=== PATIENT | female | born 1980 | race Asian ===

== ENCOUNTER 2017-05-13 15:29 | Emergency (ER) | payer OTHER ==
[~2017-05-13] VITALS: Ht 165.1 cm; Wt 65.0 kg
[~2017-05-13 15:29] MED LIST: IBUP-1222 PO; OXYC-302 PO
[2017-05-13 16:02] LABS: BLOOD UREA NITROGEN 14 mg/dL (7-18)
[2017-05-13 16:07] LABS: IS PT STATUS REG ER OR PRE ER? YES
== END 2017-05-13 16:57 | disposition home or self-care (01) ==
LOC: ED 16:00
DX: R00.2 Palpitations (principal); F41.1 Generalized anxiety disorder; R06.4 Hyperventilation; R55 Syncope and collapse
CPT/HCPCS: 36415; 71010; 80048; 82040; 83880; 84484; 85025; 93005; 99285

== ENCOUNTER 2018-03-19 13:50 | Emergency (ER) | payer OTHER ==
[~2018-03-19] VITALS: Ht 162.6 cm; Wt 62.0 kg
[2018-03-19] MEDS ORDERED: SODIUM CHLORIDE FLUSH 10ML SYR IVF ONE (14:00)
[2018-03-19] MEDS ORDERED: PLEASE ENTER HEIGHT AND WEIGHT MC SCH (14:00)
[2018-03-19 14:20] LABS: BASOPHILS # (AUTO) 0.02 x10^3/uL (0-0.1); BASOPHILS % (AUTO) 0 % (0-1); EOSINOPHILS # (AUTO) 0.15 x10^3/uL (0-0.4); EOSINOPHILS % (AUTO) 2 % (1-7); LYMPHOCYTES # (AUTO) 1.93 x10^3/uL (1-3.4); LYMPHOCYTES % (AUTO) 27 % (22-44); MD NO; MEAN CORPUSCULAR HEMOGLOBIN 29.7 pg (27.0-34.8); MEAN CORPUSCULAR HGB CONC 33.6 g/dL (32.4-35.8); MEAN CORPUSCULAR VOLUME 88.3 fL (80-100); MEAN PLATELET VOLUME 7.7 fL (7.4-10.4); MONOCYTES # (AUTO) 0.31 x10^3/uL (0.2-0.8); MONOCYTES % (AUTO) 4 % (2-9); NEUTROPHILS # (AUTO) 4.86 x10^3/uL (1.8-6.8); NEUTROPHILS % (AUTO) 67 % (42-75); PLATELET COUNT 259 x10^3/uL (130-400); RED BLOOD COUNT 4.91 x10^6/uL (3.82-5.3); RED CELL DISTRIBUTION WIDTH 13.7 % (9.6-15.2)
[2018-03-19 14:32] LABS: ALANINE AMINOTRANSFERASE 20 U/L (12-78); ALBUMIN 3.5 g/dL (3.4-5.0); ANION GAP 5 mmol/L (5-15); CALCIUM 8.6 mg/dL (8.5-10.1); CHLORIDE 107 mmol/L (98-107); CREATININE 0.91 mg/dL (0.55-1.02)
[2018-03-19 14:37] LABS: ALKALINE PHOSPHATASE 65 U/L (45-117); BILIRUBIN,TOTAL 0.2 mg/dL (0.2-1.0); TOTAL PROTEIN 7.2 g/dL (6.4-8.2); TROPONIN I < 0.015 ng/mL (0.000-0.045)
[2018-03-19 16:56] VITALS: BP 121/83
== END 2018-03-19 17:15 | disposition home or self-care (01) ==
LOC: ED 16:20
DX: R00.2 Palpitations (principal); R20.2 Paresthesia of skin; I48.91 Unspecified atrial fibrillation; Z79.82 Long term (current) use of aspirin
CPT/HCPCS: 36415; 71045; 80053; 84436; 84443; 84484; 84703; 85025; 85379; 93005; 99285